=== PATIENT | male | born 1985 | race Caucasian/White ===

== ENCOUNTER 2017-07-29 19:44 | Emergency (ER) | payer BC ==
[~2017-07-29] VITALS: Ht 172.7 cm; Wt 61.2 kg
--- NOTE | 2017-07-29 19:40 | Emergency Room Report ---
History of Present Illness General Chief Complaint: Seizure Source: Patient, EMS Present Illness HPI Patient is a 32-year-old male presented after having a witnessed seizure. Patient was reportedly a bar. He had prior history of seizure disorder and takes Keppra. He denied any fever. He reports having been taking 1000 mg twice a day. The patient reports being compliant with his medications. He reports having a moderate headache as well as tongue pain. He denies other pain. Allergies: Coded Allergies: No Known Allergies (Unverified , 07/29/17) Patient History Past Medical History: see triage record Reviewed Nursing Documentation: PMH: Agreed, PSxH: Agreed Nursing Documentation-PMH Past Medical History: No History, Except For Hx Seizures: Yes Review of Systems All Other Systems: negative except mentioned in HPI Physical Exam Vital Signs Date Time Temp Pulse Resp B/P (MAP) Pulse Ox O2 Delivery O2 Flow Rate FiO2 07/29/17 19:34 106 16 141/74 98 Sp02 EP Interpretation: reviewed General Appearance: well appearing, no apparent distress, alert, GCS 15 Head: normocephalic, atraumatic ENT: hearing grossly normal, normal voice Neck: full range of motion, supple Respiratory: normal inspection, chest non-tender, lungs clear, normal breath sounds, no respiratory distress, speaking full sentences Cardiovascular #1: normal inspection, regular rate, rhythm, no edema Musculoskeletal: normal inspection, back normal, gait/station normal, no calf tenderness Neurologic: normal inspection, alert, oriented x3, responsive, normal gait Psychiatric: mood/affect normal Skin: no rash Medical Decision Making Diagnostic Impression: Primary Impression: Seizure disorder Additional Impression: Epileptic seizure, generalized ER Course Patient presented for seizure. Differential diagnosis included cysticercosis, electrolyte abnormality, mass lesion, or cranial hemorrhage.Because of complexity of patient's case laboratory testing and imaging studies were ordered. The patient given IV fluids as well as IV Keppra. The patient was noted to have a tongue abrasion. The patient is advised not to drive or operate heavy machinery.The patient is advised to follow up with primary care doctor in in the next few days. The patient is advised seizure precautions. Patient is advised to return if any worsening condition or if any changes in status that are concerning. This report is dictated with [employer] box office agent software which may occasionally lead to discrepancies related to use of this software. Labs Test 07/29/17 20:10 White Blood Count 6.9 K/UL (4.8-10.8) Red Blood Count 5.39 M/UL (4.70-6.10) Hemoglobin 14.7 G/DL (14.2-18.0) Hematocrit 48.8 % (42.0-52.0) Mean Corpuscular Volume 91 FL (80-99) Mean Corpuscular Hemoglobin 27.4 PG (27.0-31.0) Mean Corpuscular Hemoglobin Concent 30.2 G/DL (32.0-36.0) Red Cell Distribution Width 12.2 % (11.6-14.8) Platelet Count 236 K/UL (150-450) Mean Platelet Volume 6.4 FL (6.5-10.1) Neutrophils (%) (Auto) 53.6 % (45.0-75.0) Lymphocytes (%) (Auto) 36.6 % (20.0-45.0) Monocytes (%) (Auto) 7.3 % (1.0-10.0) Eosinophils (%) (Auto) 1.3 % (0.0-3.0) Basophils (%) (Auto) 1.2 % (0.0-2.0) Sodium Level 140 MMOL/L (136-145) Potassium Level 4.0 MMOL/L (3.5-5.1) Chloride Level 101 MMOL/L (98-107) Carbon Dioxide Level 18 MMOL/L (21-32) Anion Gap 22 mmol/L (5-15) Blood Urea Nitrogen 13 mg/dL (7-18) Creatinine 1.4 MG/DL (0.55-1.30) Estimat Glomerular Filtration Rate 58.7 mL/min (>60) Glucose Level 94 MG/DL (74-106) Calcium Level 9.3 MG/DL (8.5-10.1) Last Vital Signs Date Time Temp Pulse Resp B/P (MAP) Pulse Ox O2 Delivery O2 Flow Rate FiO2 07/29/17 19:34 106 16 141/74 98 Status: improved Disposition: HOME, SELF-CARE Condition: Stable Scripts Levetiracetam (KEPPRA) 500 Mg Tablet 500 MG ORAL EVERY 12 HOURS, #60 TAB 0 Refills Prov: Dhruv Draper 07/29/17 Dhruv Draper Jul 29, 2017 19:39
[2017-07-29 19:44] VITALS: BP 141/74
[~2017-07-29 19:44] MED LIST: KEPPRA500 M4 ORAL
[2017-07-29] MEDS ORDERED: levETIRAcetam 1,000mg/NS100ml 100 ML IVPB ONE (20:00)
[2017-07-29 20:24] LABS: BASOPHILS % (AUTO) 1.2 % (0.0-2.0); EOSINOPHILS % (AUTO) 1.3 % (0.0-3.0); LYMPHOCYTES % (AUTO) 36.6 % (20.0-45.0); MEAN CORPUSCULAR HEMOGLOBIN 27.4 PG (27.0-31.0); MEAN CORPUSCULAR HGB CONC 30.2 G/DL (32.0-36.0); MEAN CORPUSCULAR VOLUME 91 FL (80-99); MEAN PLATELET VOLUME 6.4 FL (6.5-10.1); MONOCYTES % (AUTO) 7.3 % (1.0-10.0); NEUTROPHILS % (AUTO) 53.6 % (45.0-75.0); PLATELET COUNT 236 K/UL (150-450); RED BLOOD COUNT 5.39 M/UL (4.70-6.10); RED CELL DISTRIBUTION WIDTH 12.2 % (11.6-14.8); WHITE BLOOD COUNT 6.9 K/UL (4.8-10.8)
[2017-07-29 20:36] LABS: ANION GAP 22 mmol/L (5-15); CALCIUM 9.3 MG/DL (8.5-10.1); CARBON DIOXIDE 18 MMOL/L (21-32); CHLORIDE 101 MMOL/L (98-107); CREATININE 1.4 MG/DL (0.55-1.30); GLOMERULAR FILTRATION RATE 58.7 mL/min (>60); SODIUM 140 MMOL/L (136-145)
[2017-07-29] MEDS ORDERED: KEPPRA500 M4 ORAL (20:52)
[2017-07-29 21:30] VITALS: BP 120/71
== END 2017-07-29 21:30 | disposition home or self-care (01) ==
LOC: EDBD 19:44 → EMR 21:29
DX: G40.409 Other generalized epilepsy and epileptic syndromes, not intractable, without status epilepticus (principal); Z79.899 Other long term (current) drug therapy
CPT/HCPCS: 36415; 80048; 85025; 96365; 99284; J1953